=== PATIENT | male | born 1965 | race Caucasian/White ===

== ENCOUNTER 2018-01-12 23:20 | Emergency (ER) | payer SELFPAY, MEDICAID ==
[2018-01-13] MEDS: LIDOCAINE/MYLANTA 40 ML BTL PO (00:22)
== END 2018-01-13 01:36 | disposition home or self-care (01) ==
LOC: E/R 01-13 01:36
DX: T54.91XA Toxic effect of unspecified corrosive substance, accidental (unintentional), initial encounter (principal); R40.2142 Coma scale, eyes open, spontaneous, at arrival to emergency department; R40.2252 Coma scale, best verbal response, oriented, at arrival to emergency department; R40.2362 Coma scale, best motor response, obeys commands, at arrival to emergency department
CPT/HCPCS: 99283